=== PATIENT | female | born 1950 | race Caucasian/White ===

== ENCOUNTER 2018-09-27 14:09 | Outpatient (CLI) | payer OTHER ==
--- NOTE | 2018-10-12 15:29 | Mammography Report ---
Reason: SCREEN w BRIAN Procedure Date: 09/27/2018 Accession Number: [id number] / [id number] Procedure: JEFFREY - Screening Mammo w/Brian CPT Code: FULL RESULT: EXAM: Screening Mammo w/Brian DATE: 09/27/2018 3:22 PM CLINICAL HISTORY: Routine screening. No personal or reported family history of breast cancer. TECHNIQUE: Bilateral CC and MLO views were obtained. COMPARISON: Outside priors could not be obtained. Today's exam will represent a new imaging baseline. FINDINGS: The breasts demonstrate heterogeneously dense fibroglandular parenchyma bilaterally. Bilateral breasts: There are no suspicious masses, calcifications or areas of distortion. There is mild symmetric nipple retraction bilaterally. IMPRESSION: Benign findings RECOMMENDATION: Routine annual screening unless otherwise clinically indicated. BI-RADS CATEGORY 2: Benign findings STANDARD QUALIFYING STATEMENTS: 1. This examination was not reviewed with the aid of Computer-Aided Detection (CAD). 2. A negative or benign imaging report should not preclude biopsy if clinically suspicious findings are present. 3. Dense breasts may obscure an underlying neoplasm. 4. This examination was reviewed with the aid of 3D breast imaging (tomosynthesis).
== END 2018-09-27 14:10 | disposition home or self-care (01) ==
LOC: DI 14:09
PROVIDERS: ATTEND Internal Medicine
DX: Z12.31 Encounter for screening mammogram for malignant neoplasm of breast (principal)
CPT/HCPCS: 77063; 77067

== ENCOUNTER 2018-10-04 08:18 | Outpatient (CLI) | payer OTHER ==
[2018-10-04 08:51] LABS: BASOPHILS % (AUTO) 0.5 %; EOSINOPHILS # (AUTO) 0.3 10^3/uL (0.0-0.7); EOSINOPHILS % (AUTO) 6.5 %; HGB - HEMOGLOBIN 13.7 g/dL (12.0-16.0); LYMPHOCYTES # (AUTO) 0.8 10^3/uL (1.5-3.5); LYMPHOCYTES % (AUTO) 15.3 %; MEAN CORPUSCULAR HEMOGLOBIN 32.5 pg (27.0-31.0); MEAN CORPUSCULAR HGB CONC 35.4 g/dL (32.0-36.0); MEAN CORPUSCULAR VOLUME 91.7 fL (81.0-99.0); MEAN PLATELET VOLUME 8.1 fL (7.9-10.8); MONOCYTES # (AUTO) 0.3 10^3/uL (0.0-1.0); MONOCYTES % (AUTO) 6.5 %; NEUTROPHILS # (AUTO) 3.6 10^3/uL (1.5-6.6); NEUTROPHILS % (AUTO) 71.2 %; PLT - PLATELET COUNT 191 10^3/uL (130-450); RED BLOOD COUNT 4.23 10^6/uL (4.20-5.40); RED CELL DISTRIBUTION WIDTH 12.8 % (12.0-15.0); WHITE BLOOD COUNT 5.1 x10^3/uL (4.8-10.8)
[2018-10-04 09:04] LABS: ALBUMIN 4.5 g/dL (3.2-5.5); ALBUMIN/GLOBULIN RATIO 1.6 (1.0-2.2); ALKALINE PHOSPHATASE 76 IU/L (42-121); ALT ALANINE AMINOTRANSFERASE 37 IU/L (10-60); AST ASPARTATE AMINOTRANSFERASE 29 IU/L (10-42); BILIRUBIN,TOTAL 0.8 mg/dL (0.2-1.0); BUN - BLOOD UREA NITROGEN 28 mg/dL (6-20); CALCIUM 9.6 mg/dL (8.5-10.3); CARBON DIOXIDE - CO2 26 mmol/L (21-32); CHLORIDE 102 mmol/L (101-111); CHOL/HDL RATIO 3.8 (<4.4); CHOLESTEROL 174 mg/dL; CK- CREATINE KINASE 83 IU/L (22-269); GFR - MDRD 55 (>89); GLUCOSE 111 mg/dL (70-100); HDL CHOLESTEROL 46 mg/dL; LDL CHOLESTEROL,CALCULATED 84 mg/dL; LDL/HDL RATIO 1.8 (<4.4); SODIUM 140 mmol/L (135-145); TOTAL PROTEIN 7.4 g/dL (6.7-8.2); VLDL CHOLESTEROL 44 mg/dL
[2018-10-05 15:47] LABS: HEPATITIS C ANTIBODY NON-REACTIVE (NON-REACTIVE)
[2018-10-06 11:15] LABS: HB2 TOTAL 14.6 g/dL; HEMOGLOBIN A1C 0.55 g/dL; HEMOGLOBIN A1C % 5.6 % (4.6-6.2)
== END 2018-10-04 08:19 | disposition home or self-care (01) ==
LOC: LAB 08:18
PROVIDERS: ATTEND Internal Medicine
DX: E03.9 Hypothyroidism, unspecified (principal); Z11.59 Encounter for screening for other viral diseases; F32.9 Major depressive disorder, single episode, unspecified; G47.00 Insomnia, unspecified; I10 Essential (primary) hypertension; Z79.899 Other long term (current) drug therapy; R73.01 Impaired fasting glucose
CPT/HCPCS: 36415; 80053; 80061; 82550; 83036; 83721; 84443; 85025; 86803

== ENCOUNTER 2020-02-14 13:59 | Outpatient (CLI) | payer MEDICARE, OTHER ==
[2020-02-14 14:25] LABS: CREATININE 1.1 mg/dL (0.4-1.0)
== END 2020-02-14 14:00 | disposition home or self-care (01) ==
LOC: LAB 13:59
PROVIDERS: ATTEND Internal Medicine
DX: R79.89 Other specified abnormal findings of blood chemistry (principal)
CPT/HCPCS: 36415; 82565

== ENCOUNTER 2020-02-16 08:09 | Outpatient (CLI) | payer MEDICARE, OTHER ==
[2020-02-16] MEDS ORDERED: GADOBUTROL 7.5 MMOL/7.5 ML VIAL ONE (08:38)
[2020-02-16] MEDS ORDERED: GADOBUTROL 7.5 MMOL/7.5 ML VIAL IVP ONE (09:22)
--- NOTE | 2020-02-16 10:44 | MRI Report ---
Reason: LOW BACK PAIN, DISORDER OF AUTONOMIC NERV SYSTEM Procedure Date: 02/16/2020 Accession Number: [id number] / [id number] Procedure: MRI - Lumbar Spine W/WO CPT Code: Final Report FULL RESULT: EXAM: MRI LUMBAR SPINE WITHOUT AND WITH CONTRAST EXAM DATE: 02/16/2020 08:53 AM. CLINICAL HISTORY: 69-year-old woman with low back pain and periodic numbness/tingling down bilateral legs. Patient is status post L4-L5 fusion in 2018. COMPARISONS: None available. TECHNIQUE: Multiplanar, multisequence T1-weighted and fluid-sensitive sequences of the lumbar spine from T12 to S1 before and after administration of intravenous contrast. Other: None. IV contrast: 7 cc GADAVIST. FINDINGS: Postsurgical: Status post posterior fusion of L4-L5. Neurologic Structures: The conus terminates at L1. The conus medullaris and cauda equina are unremarkable. No abnormal enhancement. Alignment: Mild grade 1 retrolisthesis of L2 on L3 measures approximately 2 mm and mild grade 1 anterolisthesis of L3 on L4 measures approximately 2 mm. There is minimal convex right scoliosis centered at L3. Bone Marrow: Five olb-wju-jozsuxs lumbar vertebral bodies are assumed, but ribs are not well demonstrated at T12. No gross fractures or bone lesions. Mild degenerative endplate edema and enhancement are present at L2-L3. Small Schmorl's node is also present in the inferior endplate of L2, likely reflecting chronic degenerative change. Disk Levels/Facets: T12-L1: Unremarkable. L1-L2: Unremarkable. L2-L3: There is disk desiccation and moderate height loss. Small broad-based disk bulge and facet hypertrophy result in mild to moderate narrowing of the central canal. Disk in the subarticular spaces, facet hypertrophy, and retrolisthesis result in mild to moderate narrowing of the left neural foramen and mild narrowing of the right. L3-L4: There is disk desiccation and mild height loss. Broad-based disk bulge and facet hypertrophy result in moderate narrowing of the central canal. Disk in the subarticular spaces and facet hypertrophy result in mild to moderate narrowing of the neural foramina bilaterally, left side worse than right. Disk appears to contact the extraforaminal left L3 nerve root in the far lateral space, as well. L4-L5: Interbody spacer is present in the disk space. No significant narrowing of the central canal. Evaluation of the neural foramina is partially limited by artifact from adjacent pedicle screws, but disk bulge in the subarticular space results in mild to moderate narrowing of the left neural foramen and appears to contact the exiting left L4 nerve root. There is also mild narrowing of the right neural foramen. L5-S1: Disk height and signal are preserved. No significant narrowing of the central canal. Facet hypertrophy results in mild to moderate narrowing of the neural foramina bilaterally. Spinal Canal: No enhancing masses within the spinal canal. No epidural abscess. Musculature: Post surgical changes are present in the posterior soft tissues of the lower lumbar spine. Otherwise, no edema or fatty atrophy. Other: The visualized retroperitoneum is unremarkable. IMPRESSION: 1. Status post posterior fusion of L4-L5. 2. Multilevel degenerative disk changes, worst at L2-L3 where there are acute on chronic bony endplate changes. 3. Degenerative changes result of the following: - L2-L3: Mild to moderate narrowing of the central canal. Mild to moderate narrowing of the left neural foramen and mild narrowing on the right. - L3-L4: Moderate narrowing of the central canal. Mild to moderate narrowing of the neural foramina bilaterally, left side worse than right. Disk also appears to contact the extraforaminal left L3 nerve root in the far lateral space. - L4-L5: At least mild to moderate narrowing of the left neural foramen and mild narrowing on the right. Disk also appears to contact the exiting left L4 nerve root. - L5-S1: Mild to moderate narrowing of the neural foramina bilaterally. Comment: The following findings are so common in adults without low back pain that while we report their presence, they must be interpreted with caution and in the context of the clinical situation. (Reference Markyk et al, Spine 2001) Prevalence of findings in patients without low back pain: Disk degeneration (any evidence): 92% Disk desiccation/T2 signal loss: 83% Disk height loss: 56% Disk bulge: 64% Disk protrusion: 32% Annular tear/high intensity zone: 38% RADIA
== END 2020-02-16 08:10 | disposition home or self-care (01) ==
LOC: DI 08:09
PROVIDERS: ATTEND Internal Medicine
DX: M51.36 Other intervertebral disc degeneration, lumbar region (principal); M47.816 Spondylosis without myelopathy or radiculopathy, lumbar region; M43.16 Spondylolisthesis, lumbar region; M47.817 Spondylosis without myelopathy or radiculopathy, lumbosacral region; Z98.1 Arthrodesis status; M51.46 Schmorl's nodes, lumbar region
CPT/HCPCS: 72158; A9585

== ENCOUNTER 2020-12-03 21:49 | Outpatient (CLI) | payer MEDICARE | END 2020-12-03 21:50 | disposition home or self-care (01) | LOC: COV 21:49 | PROVIDERS: ATTEND Family Medicine | DX: Z20.822 Contact with and (suspected) exposure to COVID-19 (principal) ==

== ENCOUNTER 2022-07-30 16:27 | Outpatient (CLI) | payer MEDICARE ==
--- NOTE | 2022-07-30 17:06 | XRAY Report ---
PROCEDURE: Hip w/Pelvis 2-3V LT INDICATIONS: LEFT HIP PAIN TECHNIQUE: AP pelvis with lateral view(s) of the left hip(s). COMPARISON: None. FINDINGS: Bones: No fractures or dislocations. Mild degenerative changes of both hips, and a relatively symmet denilson pattern. Pedicular screw and peter fixation of the lower lumbar spine partially visualized. Pelvic ring appears intact. No suspicious bony lesions. Soft tissues: The visualized bowel gas pattern is normal. No suspicious soft tissue calcifications. IMPRESSION: Mild degenerative changes of both hips. No acute abnormality. Reviewed by: Lester Roberts on 07/30/2022 5:04 PM PDT Approved by: Lester Roberts on 07/30/2022 5:04 PM PDT Station ID: [id number]
== END 2022-07-30 16:28 | disposition home or self-care (01) ==
LOC: DI 16:27
PROVIDERS: ATTEND Internal Medicine
DX: M16.0 Bilateral primary osteoarthritis of hip (principal)

== ENCOUNTER 2022-10-22 08:00 | Outpatient (CLI) | payer MEDICARE ==
[2022-10-22 17:17] LABS: BASOPHILS # (AUTO) 0.1 10^3/uL (0.0-0.1); BASOPHILS % (AUTO) 0.9 %; EOSINOPHILS # (AUTO) 0.4 10^3/uL (0.0-0.7); EOSINOPHILS % (AUTO) 6.2 %; HCT - HEMATOCRIT 38.2 % (37.0-47.0); LYMPHOCYTES # (AUTO) 1.3 10^3/uL (1.5-3.5); LYMPHOCYTES % (AUTO) 22.8 %; MEAN CORPUSCULAR HEMOGLOBIN 31.4 pg (27.0-31.0); MEAN CORPUSCULAR VOLUME 92.3 fL (81.0-99.0); MEAN PLATELET VOLUME 11.4 fL (7.9-10.8); MONOCYTES # (AUTO) 0.5 10^3/uL (0.0-1.0); MONOCYTES % (AUTO) 8.3 %; NEUTROPHILS # (AUTO) 3.5 10^3/uL (1.5-6.6); NEUTROPHILS % (AUTO) 61.4 %; PLT - PLATELET COUNT 190 10^3/uL (130-450); RED BLOOD COUNT 4.14 10^6/uL (4.20-5.40); RED CELL DISTRIBUTION WIDTH 12.5 % (12.0-15.0); WHITE BLOOD COUNT 5.7 x10^3/uL (4.8-10.8)
[2022-10-22 17:42] LABS: BUN - BLOOD UREA NITROGEN 33 mg/dL (6-20); CARBON DIOXIDE - CO2 25 mmol/L (21-32); CHLORIDE 103 mmol/L (101-111); CREATININE 1.2 mg/dL (0.4-1.0); GFR - MDRD 44 (>89); POTASSIUM 3.6 mmol/L (3.5-5.0); SODIUM 140 mmol/L (135-145)
[2022-10-22 17:43] LABS: ALBUMIN 4.5 g/dL (3.2-5.5); ALBUMIN/GLOBULIN RATIO 1.5 (1.0-2.2); ALKALINE PHOSPHATASE 93 IU/L (42-121); ALT ALANINE AMINOTRANSFERASE 15 IU/L (10-60); AST ASPARTATE AMINOTRANSFERASE 19 IU/L (10-42); BILIRUBIN,TOTAL 0.5 mg/dL (0.2-1.0); CALCIUM 9.2 mg/dL (8.5-10.3); CHOL/HDL RATIO 3.6 (<4.4); CHOLESTEROL 192 mg/dL; GLUCOSE 84 mg/dL (70-100); HDL CHOLESTEROL 53 mg/dL; LDL CHOLESTEROL,CALCULATED 108 mg/dL; TOTAL PROTEIN 7.5 g/dL (6.7-8.2); TRIGLYCERIDES 157 mg/dL; VLDL CHOLESTEROL 31 mg/dL
[2022-10-22 17:52] LABS: THYROID STIMULATING HORMONE 1.63 uIU/mL (0.34-5.60)
[2022-10-22 20:27] LABS: ESTIMATED AVERAGE GLUCOSE 111 mg/dL (70-100); HEMOGLOBIN A1c% 5.5 % (4.27-6.07)
== END 2022-10-22 23:59 | disposition home or self-care (01) ==
LOC: LAB.R 08:00
PROVIDERS: ATTEND Internal Medicine
DX: Z00.00 Encounter for general adult medical examination without abnormal findings (principal); F34.1 Dysthymic disorder; E78.5 Hyperlipidemia, unspecified; I10 Essential (primary) hypertension; E03.9 Hypothyroidism, unspecified; R73.01 Impaired fasting glucose; M54.50 Low back pain, unspecified; G62.9 Polyneuropathy, unspecified; M54.30 Sciatica, unspecified side
CPT/HCPCS: 80053; 80061; 82607; 83036; 83721; 84443; 85025

== ENCOUNTER 2022-11-05 12:24 | Outpatient (CLI) | payer MEDICARE ==
--- NOTE | 2022-11-06 09:47 | Mammography Report ---
BILATERAL DIGITAL SCREENING MAMMOGRAM 3D/2D WITH EXAGGERATED CC: 11/05/2022 CLINICAL: Routine screening. Comparison is made to exams dated: 09/27/2018 mammogram - [facility], 02/10/2013 ma mmogram, and 05/28/2016 mammogram - [facility]. Both breasts are heterogeneously dense, which may obscure small masses (category c / 51-75% glandular tissue). No significant masses, calcifications, or other findings are seen in either breast. There has been no significant interval change. IMPRESSION: NEGATIVE There is no mammographic evidence of malignancy. A 1 year screening mammogram is recommended. Based on the Tyrer Cuzick model (a risk assessment model) the patients lifetime risk is 6.8% and her 10 year risk is 4.3%. According to the ACR, ACS, and NCCN guidelines, an annual breast MRI exam debby g with mammogram is recommended if the patients lifetime risk is 20% or greater. This exam was interpreted at Station ID: [id number]. NOTE: For mammograms, a report in lay terms will be sent to the patient. Approximately 15% of breast malignancies will not be visualized mammographically. In the management of a palpable breast mass, a negative mammogram must not discourage biopsy of a clinically suspicious lesion. Electronically Signed By: Juju alvarez/shay:11/05/2022 17:16:26 ACR BI-RADS Category 1: Negative 3341F PARENCHYMAL PATTERN: (D) - The breast(s) demonstrate(s) heterogeneously dense fibroglandular parenchy ma. BI-RADS CATEGORY: (1) - 1 RECOMMENDATION: (ANNUAL) - Recommend routine annual screening mammography. [id number] 1 year screening LATERALITY: (B)
== END 2022-11-05 12:25 | disposition home or self-care (01) ==
LOC: DI 12:24
PROVIDERS: ATTEND Internal Medicine
DX: Z12.31 Encounter for screening mammogram for malignant neoplasm of breast (principal)

== ENCOUNTER 2023-07-07 16:12 | Outpatient (CLI) | payer MEDICARE ==
[2023-07-07 16:35] LABS: CREATININE 1.1 mg/dL (0.6-1.3)
--- NOTE | 2023-07-08 11:08 | MRI Report ---
PROCEDURE: LUMBAR SPINE W/WO INDICATIONS: LOW BACK PAIN CONTRAST: gadavist 7.0ml TECHNIQUE: Noncontrast sagittal T1 spin echo and T2 fast spin echo, sagittal STIR, axial T1 and T2 fast spin ech o through the lumbar spine. In cases with scoliosis, additional coronal T2 fast spin echo may be per formed. After the administration of contrast, sagittal and axial T1 spin echo with fat saturation th rough the lumbar spine. COMPARISON: 02/16/2020 (report only, no images available at the time of this dictation). FINDINGS: Image quality: Motion artifact is noted. There is artifact associated with the metallic hardware. Alignment and curvature: Mild dextroconvex scoliotic curvature is seen. No significant AP alignment abnormality can be seen. Marrow: Marrow is of normal overall signal. No acute vertebral body compression fractures. No susp icious marrow enhancement. Spinal cord: Conus medullaris terminates at the L1 level. Visualized spinal cord demonstrates dragan l signal, without suspicious enhancement. Paraspinous soft tissues: No paravertebral masses or abnormal enhancement. Several nonenhancing rosario al cysts can be seen. T12-L1: Normal in appearance. L1-L2: Mild loss of disc height and disc signal are seen. Mild disc bulge is seen. There is mil d to moderate bilateral neuroforaminal narrowing. Mild central canal narrowing is seen. L2-L3: There is at least moderate loss of disc height seen. Moderate disc bulge is seen at this l evel. Moderate disc bulge is seen at this level. Mild to moderate facet hypertrophy can be seen. There is mild right-sided and moderate left-sided neuroforaminal narrowing. Moderate central canal n arrowing is seen. L3-L4: Moderate to severe loss of disc height and disc signal can be seen. Moderate disc bulge is seen at this level. A superimposed central disc protrusion is seen. Posteriorly directed endplate os teophytes are seen. Reactive marrow endplate changes are seen, which demonstrate mixed signal and ar e attributed to a combination of edema and fatty metaplasia (Modic type I and Modic type II changes). Moderate facet hypertrophy is seen. There is moderate to severe left-sided and at least moderate right-sided neuroforaminal narrowing. Compression is seen upon the exiting nerve roots. Moderate to severe central canal narrowing is seen. L4-L5: Postoperative changes seen at this level, with bilateral pedicle screws and vertical fixatio n rods. There is a disc spacer seen at this level. Mild disc bulge is seen. Mild facet hypertrophy is seen. No significant neuroforaminal narrowing or central canal narrowing can be seen. L5-S1: The disc height and disc signal are well preserved. Mild disc bulge is seen. Moderate fa cet hypertrophy is seen. Moderate bilateral neural foraminal narrowing is seen. Minimal central renata l narrowing is seen. IMPRESSION: L4-L5 postoperative hardware. Multiple levels of degenerative change can be seen, which are overall worst at the L3-L4 level. Compared to the report from the prior MRI from 2019, the degenerative changes are believed to be prog ressed at multiple levels. Reviewed by: Anand Ryan MD on 07/08/2023 10:07 AM CHRISTY Approved by: Anand Ryan MD on 07/08/2023 10:07 AM CHRISTY Station ID: [id number]
== END 2023-07-07 16:13 | disposition home or self-care (01) ==
LOC: LAB 16:12
PROVIDERS: ATTEND Internal Medicine
DX: Z79.899 Other long term (current) drug therapy (principal); M47.26 Other spondylosis with radiculopathy, lumbar region; M47.27 Other spondylosis with radiculopathy, lumbosacral region
CPT/HCPCS: 36415; 72158; 82565; A9585

== ENCOUNTER 2023-10-04 10:41 | Outpatient (CLI) | payer MEDICARE ==
--- NOTE | 2023-10-04 16:13 | CT Report ---
PROCEDURE: LUMBAR SPINE WO INDICATIONS: LUMBAR RADICULOPATHY TECHNIQUE: Noncontrast 3 mm thick sections acquired from the T12 level to the sacrum. Sagittal and coronal refo rmats were constructed. For radiation dose reduction, the following was used: automated exposure co ntrol, adjustment of mA and/or kV according to patient size. COMPARISON: None. FINDINGS: Image quality: Excellent. Bones: Patient is status post posterior fixation and discectomy from L4-L5. No findings to suggest miller rdware loosening or fracture. No compression deformities. Severe degenerative changes are present at L2-3, L3-4, and L4-5 including intervertebral disc space narrowing, endplate sclerosis, osteophytosis and subchondral cystic change. T12-L1: Mild disc bulge. No canal stenosis. No foraminal stenosis. L1-L2: Disc desiccation and height loss. Broad based disc bulge. Moderate facet ligamentum flavum hypertrophy. No canal stenosis. No foraminal stenosis. L2-L3: Severe disc desiccation and height loss. Mild facet ligamentum flavum hypertrophy. No canal stenosis. Mild bilateral foraminal stenosis. L3-L4: Severe disc desiccation and height loss. Severe reactive endplate changes. Moderate facet li gamentum flavum hypertrophy. Broad-based disc bulge. Moderate canal stenosis. Moderate left foraminal narrowing. No right foraminal stenosis. L4-L5: Reactive endplate changes. Patient is status post discectomy. No canal stenosis. No foramina l stenosis. L5-S1: Disc height is preserved. Mild facet ligamentum flavum hypertrophy. No canal stenosis. Mild bilateral foraminal stenosis. Soft tissues: No retroperitoneal masses or hematomas. Visualized aorta is normal in caliber. IMPRESSION: 1. Severe degenerative changes in the mid lumbar spine. 2. Moderate canal stenosis at L3-4. No other canal stenosis lumbar spine. 3. Left foraminal stenosis at L3-4. No other significant foraminal narrowing of the lumbar spine. Reviewed by: Dorothy Diamond MD on 10/04/2023 4:12 PM PST Approved by: Dorothy Diamond MD on 10/04/2023 4:12 PM PST Station ID: [id number]
== END 2023-10-04 10:42 | disposition home or self-care (01) ==
LOC: DI 10:41
PROVIDERS: ATTEND Student in an Organized Health Care Education/Training Program
DX: M47.26 Other spondylosis with radiculopathy, lumbar region (principal); M48.061 Spinal stenosis, lumbar region without neurogenic claudication; Z98.1 Arthrodesis status